=== PATIENT | female | born 1995 | race Caucasian/White ===

== ENCOUNTER 2016-09-07 14:34 | Emergency (ER) | payer SELFPAY ==
[~2016-09-07] VITALS: Ht 162.6 cm; Wt 86.2 kg
[2016-09-07 14:44] VITALS: BP 130/72
== END 2016-09-07 15:00 | disposition home or self-care (01) ==
LOC: ER 14:36
DX: J02.0 Streptococcal pharyngitis (principal); Z88.1 Allergy status to other antibiotic agents
CPT/HCPCS: 99283; A4606; Z7610

== ENCOUNTER 2016-09-19 14:48 | Emergency (ER) | payer OTHER ==
[~2016-09-19] VITALS: Ht 162.6 cm; Wt 86.2 kg
[2016-09-19 15:03] VITALS: BP 133/74
== END 2016-09-19 18:09 | disposition home or self-care (01) ==
LOC: ER 14:53
DX: R09.89 Other specified symptoms and signs involving the circulatory and respiratory systems (principal); Z88.1 Allergy status to other antibiotic agents; F10.20 Alcohol dependence, uncomplicated
CPT/HCPCS: 70360-TC; A4606; Z7610